=== PATIENT | female | born 1990 ===

== ENCOUNTER 2021-05-29 09:57 | Day surgery (SDC) | payer OTHER ==
[2021-05-27 13:55] LABS: Hematocrit 39.5 % (30.3-42.9); Hemoglobin 12.7 gm/dl (10.1-14.3); Mean Corpuscular HGB Conc 32 % (30-34); Mean Corpuscular Volume 89 fl (79-97); Platelet Count 266 K/mm3 (140-440); Red Blood Count 4.44 M/mm3 (3.65-5.03); Red Cell Distribution Width 13.2 % (13.2-15.2)
--- NOTE | 2021-05-28 19:55 | History and Physical Report ---
History of Present Illness Date of examination: 05/22/21 Date of admission: 05/29/21 Chief complaint: irregular bleeding History of present illness: Visit Type: Pre-Op History of Present Illness: pt presents for pre-op for Myosure;no c/o .......................... .........................................Sarai Alberto May 22, 2021 10:22 AM Patient denies fever, cough, shortness of breath and exposure to COVID-19. Pt wore mask during visit. Chart reviewed, patient identified by name and , visit confirmed with the patient............................. .......................................Sarai Sotelomore May 22, 2021 10:22 AM Pt presents for pre op for hysteroscopy and removal of endometrial mass dx'd on SIS done at [facility] . Pt desires myosure removal. All risk/benefits/alternatives were d/w pt and questions were addressed and answer ed. Consents signed and placed on the chart. Vital Signs: Patient Profile: 31 Years Old Female Height: 63.50 inches Weight: 151 pounds BMI: 26.33 Temp: 97.7 degrees F forehead BP sittin / 64 (left arm) Current Method of Contraception: None Date of Last Pap Smear: 05/02/2020 Past History : 1 Term Births: 0 Para: 0 Aborta: 1 Spont. 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 Uterine Surgery (not C/S): negative Operations: negative Negative Past Surgical History Hospitalizations: negative Anesthesia Complications: negative Abnormal PAP: negative Uterine Anomaly: negative KAYLYN Exposure: negative Infertility: negative Infection History HIV Risk Eval: no Hx of STD: None Active Medications (reviewed today): None Current Allergies (reviewed today): No known allergies Past Medical History: Reviewed history from 07/06/2019 and no changes required: Negative Past Medical History Past Surgical History: Reviewed history from 07/06/2019 and no changes required: negative Negative Past Surgical History Family History Summary: Reviewed history and no changes required: 05/28/2021 Father - Has Family History of Prostate Cancer - Entered On: 07/06/2019 Social History: Reviewed history from 07/06/2019 and no changes required: Patient is Smoking History: Patient has never smoked. Risk Factors: PAP Smear History: Date of Last PAP Smear: 05/02/2020 Review of Systems General Denies fever, chills, sweats, anorexia, fatigue, weakness, malaise, weight loss and sleep disorder. Denies nausea, vomiting, headache, swelling of legs, abdominal pain, vaginal discharge, vaginal bleeding and contractions. Complains of abnormal vaginal bleeding. Denies vaginal discharge, incontinence, dysuria, hematuria, urinary frequency, amenorrhea, menorrhagia, pelvic pain, genital sores, decreased libido, painful periods, painful sex, urinary urgency, hot flashes, vaginal dry ness, vaginal itching and vaginal odor. CV Denies chest pains, palpitations, syncope, dyspnea on exertion, orthopnea, PND and peripheral edema. Resp Denies cough, dyspnea at rest, excessive sputum, hemoptysis, wheezing and pleurisy. GI Denies nausea, vomiting, diarrhea, constipation, change in bowel habits, abdominal pain, melena, hematochezia, jaundice, gas/bloating, indigestion /heartburn, dysphagia and odynophagia. Endo Denies cold intolerance, heat intolerance, polydipsia, polyphagia, polyuria and unusual weight change. Breast Denies left breast lump, right breast lump, nipple discharge, bloody discharge from nipple, breast pain, abnormal mammogram and breast enlargement. MS Denies back pain, joint pain, joint swelling, muscle cramps, muscle weakness, stiffness, arthritis, sciatica, restless legs, leg pain at night and leg pain with exertion. Derm Denies rash, itching, dryness and suspicious lesions. Neuro Denies paralysis, paresthesias, headache, seizures, tremors, vertigo, transient blindness, frequent falls, frequent headaches and difficulty walking. Psych Denies depression, anxiety, irritability and mood swings. Eyes Denies blurring, diplopia, irritation, discharge, vision loss, eye pain and photophobia. ENT Denies earache, ear discharge, tinnitus, decreased hearing, nasal congestion, nosebleeds, sore throat and hoarseness. Allergy Denies urticaria, allergic rash, hay fever and recurrent infections. Heme Denies abnormal bruising, bleeding and enlarged lymph nodes. 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) Family/Genetic History: other (see hpi) Social history: other (see hpi) Medications and Allergies Allergies Allergy/AdvReac Type Severity Reaction Status Date / Time No Known Allergies Allergy Unverified 05/22/21 18:26 Home Medications Medication Instructions Recorded Confirmed Last Taken Type No Known Home Medications [No 05/22/21 05/22/21 Unknown History Reported Home Medications] Active Meds: Active Medications Acetaminophen (Acetaminophen 500 Mg Tab) 1,000 mg PO PREOP ESDRAS Stop: 05/29/21 20:00 Celecoxib (Celecoxib 200 Mg Cap) 200 mg PO PREOP NR Stop: 05/29/21 20:00 Gabapentin (Gabapentin 300 Mg Cap) 300 mg PO PREOP NR Stop: 05/29/21 20:00 Lactated Ringer's (Lactated Ringers) 1,000 mls @ 100 mls/hr IV DIRECT ESDRAS Stop: 05/29/21 23:59 Midazolam HCl (Midazolam 2 Mg/2 Ml Inj) 2 mg IV PREOP NR Stop: 05/29/21 20:00 Scopolamine (Scopolamine Transdermal Patch 72 Hr) 1 each TD PREOP NR Stop: 05/29/21 20:00 Review of Systems All systems: negative - Vital Signs Vital signs: Vital Signs Temp Pulse Resp BP Pulse Ox 98.9 F 78 16 134/83 99 05/27/21 13:05 05/27/21 13:05 05/27/21 13:05 05/27/21 13:05 05/27/21 13:05 Temp Pulse Resp BP Pulse Ox 98.9 F 78 16 134/83 99 05/27/21 13:05 05/27/21 13:05 05/27/21 13:05 05/27/21 13:05 05/27/21 13:05 - Physical Exam Cardiovascular: Normal S1, Normal S2 Lungs: Positive: Clear to auscultation, Normal air movement Abdomen: Positive: normal appearance, soft. Negative: distention, tenderness, guarding Genitourinary (Female): Positive: other (deferred until EUA) Results Result Diagrams: 05/27/21 06:00 All other labs normal. Assessment and Plan - Patient Problems (1) Endometrial mass Status: Acute Plan to address problem: -admit and prepare for above stated procedure -consents signed and placed on the chart.
[~2021-05-29 09:57] MED LIST: ACETAMINOPHEN 500 MG TAB PO SCH; CELECOXIB 200 MG CAP PO NR; GABAPENTIN 300 MG CAP PO NR; LACTATED RINGERS 1,000 ML IV SCH; MIDAZOLAM 2 MG/2 ML INJ IV NR; SCOPOLAMINE TRANSDERMAL PATCH 72 HR TD NR; ceFAZolin/Water 2 GM/20 ML 2 GM/20 ML SYRINGE IV NR
--- NOTE | 2021-05-29 10:47 | Anesthesia Consultation ---
Anesthesia Consult and Med Hx Date of service: 05/29/21 - Airway Anesthetic Teeth Evaluation: Good ROM Head & Neck: Adequate Mental/Hyoid Distance: Adequate Mallampati Class: Class II Intubation Access Assessment: Probably Good - Pre-Operative Health Status ASA Pre-Surgery Classification: ASA1 Proposed Anesthetic Plan: General - Pulmonary Hx Smoking: No Hx Respiratory Symptoms: No - Cardiovascular System Hx Hypertension: No - Central Nervous System CVA: No - Endocrine Hx Renal Disease: No Hx Liver Disease: No Hx Insulin Dependent Diabetes: No Hx Non-Insulin Dependent Diabetes: No Hx Thyroid Disease: No - Other Systems Hx Obesity: No - Additional Comments Anesthesia Medical History Comments: No prior GA. No FHx anesthetic complications.
[2021-05-29] MEDS ORDERED: HYDROmorphone 1 MG/1 ML INJ IV PRN (10:48)
[2021-05-29] MEDS ORDERED: oxyCODONE /ACETAMINOPHEN 5-325MG TAB PO PRN (10:48)
--- NOTE | 2021-05-29 10:48 | Anesthesia Day of Surgery ---
Anesthesia Day of Surgery - Day of Surgery Patient Examined: Yes Patient H&P Reviewed: Yes Patient is NPO: Yes
[2021-05-29] MEDS ORDERED: ONDANSETRON 4 MG/2 ML INJ IV PRN (11:00)
[2021-05-29] MEDS ORDERED: fentaNYL 100 MCG/2 ML INJ ONE (11:40)
[2021-05-29] MEDS ORDERED: propofoL 200 MG/20 ML VIAL IV ONE (11:41)
[2021-05-29] MEDS ORDERED: LIDOCAINE MPF (2%) 20 MG/1 ML VIAL 5 ML ONE (11:56)
[2021-05-29] MEDS ORDERED: MIDAZOLAM 2 MG/2 ML INJ ONE (11:57)
[2021-05-29] MEDS ORDERED: dexAMETHasone 20 MG/5 ML VIAL ONE (12:36)
[2021-05-29] MEDS ORDERED: ONDANSETRON 4 MG/2 ML INJ ONE (12:36)
--- NOTE | 2021-05-29 12:40 | Short Stay Summary ---
Short Stay Documentation Date of service: 05/29/21 - History H&P: dictated Social history: other (see hpi) - Allergies and Medications Current Medications: Allergies No Known Allergies Allergy (Unverified 05/22/21 18:26) Home Medications Medication Instructions Recorded Confirmed Last Taken Type Ibuprofen [Motrin 800 MG tab] 800 mg PO Q8HR PRN #30 tablet 05/29/21 Unknown Rx oxyCODONE /ACETAMINOPHEN [Percocet 1 tab PO Q4HR #10 tab 05/29/21 Unknown Rx 5/325] Active Medications Acetaminophen (Acetaminophen 500 Mg Tab) 1,000 mg PO PREOP ESDRAS Stop: 05/29/21 20:00 Last Admin: 05/29/21 10:55 Dose: 1,000 mg Documented by: Celecoxib (Celecoxib 200 Mg Cap) 200 mg PO PREOP NR Stop: 05/29/21 20:00 Last Admin: 05/29/21 10:55 Dose: 200 mg Documented by: Gabapentin (Gabapentin 300 Mg Cap) 300 mg PO PREOP NR Stop: 05/29/21 20:00 Last Admin: 05/29/21 10:55 Dose: 300 mg Documented by: Hydromorphone HCl (Hydromorphone 1 Mg/1 Ml Inj) 0.5 mg IV Q10MIN PRN PRN Reason: Pain , Severe (7-10) Stop: 05/29/21 23:00 Lactated Ringer's (Lactated Ringers) 1,000 mls @ 100 mls/hr IV DIRECT ESDRAS Stop: 05/29/21 23:59 Last Admin: 05/29/21 10:30 Dose: 100 mls/hr Documented by: Cefazolin Sodium (Ancef/Sterile Water 2 Gm/20 Ml) 2 gm in 20 mls @ 80 mls/hr IV PREOP NR; Protocol Stop: 05/30/21 06:00 Midazolam HCl (Midazolam 2 Mg/2 Ml Inj) 2 mg IV PREOP NR Stop: 05/29/21 20:00 Ondansetron HCl (Ondansetron 4 Mg/2 Ml Inj) 4 mg IV ONCE PRN PRN Reason: Nausea And Vomiting Stop: 05/29/21 20:00 Oxycodone/Acetaminophen (Oxycodone /Acetaminophen 5-325mg Tab) 1 tab PO ONCE PRN PRN Reason: Pain, Moderate (4-6) Stop: 05/29/21 14:00 Scopolamine (Scopolamine Transdermal Patch 72 Hr) 1 each TD PREOP NR Stop: 05/29/21 20:00 Last Admin: 05/29/21 10:55 Dose: 1 each Documented by: - Brief post op/procedure progress note Date of procedure: 05/29/21 Pre-op diagnosis: endometrial mass Post-op diagnosis: same Procedure: hysteroscopy myosure Anesthesia: [facility] [place] Findings: see op note Surgeon: GINNY COLLAZO Estimated blood loss: minimal Pathology: list (uterine contents) Specimen disposition: to lab Condition: stable - Hospital course Hospital course: Pt admitted for above stated procedure. Pt had procedure that as not complicated. She was d/c hojme after her recovery was completed and she met d/c criteria. - Disposition Condition at discharge: Good Disposition: 01 HOME / SELF CARE / HOMELESS - Discharge Diagnoses (1) Endometrial mass Status: Acute Short Stay Discharge Plan Additional Instructions: May return to work 06/02/2021Tuesday. Follow up with: PRIMARY CARE, [Primary Care Provider] - 7 Days Forms: Work/School Excuse Out Patient, Outpatient Surgery DC Inst. Prescriptions: Ibuprofen [Motrin 800 MG tab] 800 mg PO Q8HR PRN #30 tablet PRN Reason: Pain, Moderate (4-6) oxyCODONE /ACETAMINOPHEN [Percocet 5/325] 1 tab PO Q4HR #10 tab
--- NOTE | 2021-05-29 12:40 | Operative Report ---
Operative Report Operative Report: Date of procedure: 05/29/2021 Pre-operative diagnosis: Endometrial mass Menometrorrhagia Post-operative diagnosis: Same Procedure name(s): 1. Hysteroscopy 2. MyoSure Surgeon: Divya Mae M.D. Vp Transportation: Certified surgical scrub regulatory assistant Anesthesia: General endotracheal anesthesia EBL: Minimal Urine output: 200 cc of clear urine out via straight catheterization prior to the onset of the procedure Fluids: 1 L Deficit: 200cc Findings: Thickened endometrium inside the uterus both ostia identified small area less than 1 cm that could have possibly been an endometrial polyp versus thickened endometrial tissue. Indications: Patient with a history of menometrorrhagia presents with a diagnosis of endometrial mass at an outside facility. Patient presents for removal of mass. All risk benefits and alternatives were discussed with the patient. Consents were signed and placed on the chart. Procedure: Patient was taken to the operating room where she was placed under general endotracheal anesthesia she was then prepped and draped in normal sterile fashion in dorsal lithotomy position with legs in Rufino stirrups. Straight catheterization of the bladder was performed at this time. Sterile speculum was placed inside of the vagina to visualize the entire cervix. The anterior lip of the cervix was grasped with a single-tooth tenaculum and the uterus was sounded to 7 cm. The cervix was then dilated in order to allow passage of the hysteroscope. Hysteroscopy yielded the above-stated findings. About 1 endometrial mass were noted. the Myosure device was then used to suction and remove all masses as well as thickened tissue of the endometrium. Both ostia were noted on exam but limited by pt menstruation. At the end of the procedure, cavity appears clear and all masses had been removed. All instruments were removed from the vagina and the cervix. Patient tolerated the procedure well. All counts were correct.
[2021-05-29] MEDS ORDERED: SODIUM CHLORIDE 0.9% IRRIG SOLN 2000 ML IR ONE (12:57)
--- NOTE | 2021-05-29 13:43 | Post Anesthesia Evaluation ---
- Post Anesthesia Evaluation Patient Participated: Yes Airway Patent: Yes Stable Respiratory Function: Yes Nausea/Vomiting: No Temp > 96.8F: Yes Pain Manageable: Yes Adequeate Hydration: Yes Anesthesia Complications: No
[2021-05-29 16:32] VITALS: BP 107/68
== END 2021-05-29 09:58 | disposition home or self-care (01) ==
LOC: OR 09:57
PROVIDERS: ATTEND Obstetrics & Gynecology
DX: N92.1 Excessive and frequent menstruation with irregular cycle (principal); N92.5 Other specified irregular menstruation; N94.89 Other specified conditions associated with female genital organs and menstrual cycle; Z79.899 Other long term (current) drug therapy; Z20.822 Contact with and (suspected) exposure to COVID-19
CPT/HCPCS: 36415; 58558; 84703; 85027; 86850; 86900; 86901; 88305; C1782; J0690; J1100; J2250; J2405; J2704; J3010; J3490; J7120; U0003